=== PATIENT | female | born 1955 | race Caucasian/White ===

== ENCOUNTER 2018-12-28 13:11 | Day surgery (SDC) | payer BC ==
[~2018-12-28] VITALS: Ht 167.6 cm; Wt 58.8 kg
[~2018-12-28 13:11] MED LIST: ALBU90OI61; Boniva150 MG; EUTHYROX100 MCG; MONT10T; Pulmicort Fle180 MCG; ZOLP10
[2018-12-28] MEDS ORDERED: ERGO400 PO (14:11)
== END 2018-12-28 15:29 | disposition home or self-care (01) ==
LOC: ORSCSDS 13:11
PROVIDERS: Internal Medicine Gastroenterology
PROC: 0DBK8ZX Excision of Ascending Colon, Via Natural or Artificial Opening Endoscopic, Diagnostic (ICD-10-PCS; principal; 2018-12-28 14:30)
PROC: 0DBN8ZX Excision of Sigmoid Colon, Via Natural or Artificial Opening Endoscopic, Diagnostic (ICD-10-PCS; principal; 2018-12-28 14:30)
DX: Z12.11 Encounter for screening for malignant neoplasm of colon (principal); K63.5 Polyp of colon; K64.8 Other hemorrhoids; K57.30 Diverticulosis of large intestine without perforation or abscess without bleeding; Z80.0 Family history of malignant neoplasm of digestive organs; J45.909 Unspecified asthma, uncomplicated; Z79.899 Other long term (current) drug therapy
CPT/HCPCS: 88305; J7120

== ENCOUNTER 2024-11-27 09:53 | Day surgery (SDC) | payer MEDICARE ==
[~2024-11-27] VITALS: Ht 165.1 cm; Wt 52.7 kg
[~2024-11-27 09:53] MED LIST changes: +ERGO400 PO; +LEVSOD112 PO; +Lactated Ringer's 1,000 ML IV ONE; -MONT10T; +MONT10T PO; +PSYLLIUM PO; +QVAR REDIHALE10.6 G3 INH; +VENTOLIN INH; -ZOLP10; +ZOLP10 PO; +propofoL 50 ML IV ONE
[2024-11-27] MEDS ORDERED: Lactated Ringer's 1,000 ML IV ONE (11:01)
[2024-11-27 13:05] VITALS: BP 133/82
== END 2024-11-27 12:35 | disposition home or self-care (01) ==
LOC: ORSCSDS 09:53
PROVIDERS: Internal Medicine Gastroenterology
PROC: 0DJD8ZZ Inspection of Lower Intestinal Tract, Via Natural or Artificial Opening Endoscopic (ICD-10-PCS; principal; 2024-11-27 11:30)
DX: Z12.11 Encounter for screening for malignant neoplasm of colon (principal); Z86.0100 Personal history of colon polyps, unspecified; K58.9 Irritable bowel syndrome, unspecified; K57.30 Diverticulosis of large intestine without perforation or abscess without bleeding; Z79.899 Other long term (current) drug therapy
CPT/HCPCS: J2704; J7120